=== PATIENT | male | born 1955 | race Caucasian/White ===

== ENCOUNTER → 2022-08-23 11:12 | Outpatient (BNVA) | payer MEDICARE, SELFPAY | PROVIDERS: PCP Internal Medicine; Referring Provider Internal Medicine; Visit Provider Internal Medicine Cardiovascular Disease | DX: I25.10 Atherosclerotic heart disease of native coronary artery without angina pectoris (principal) | CPT/HCPCS: 93005; 99212 ==

== ENCOUNTER 2025-02-25 10:23 | Day surgery (SDC) | payer MEDICARE, SELFPAY ==
--- OUTSIDE RECORDS SUMMARY | 2025-02-21 16:36 | XMS_ITS | Encounter Summary ---
Author Organization [facility] Address [address] [place] [address] Phone Care Team Providers Care P D Driver Name Role Phone Anil Fraser MD Primary Care Provider [phone] Anil Fraser MD Unavailable [phone] Encounter Details Date Type Department Care Team (Late st Contact Info) Description 01/07/2020 Ancillary Orders [facility] [address] [place] [address] Reinier Wood MD [address] [employer] [place] [address] [email or web address] Social History Tobacco Use Types Packs/Day Years Used Date Smoking Tobacco: Former Cigarettes 1 20 0 09/06/1984 - 09/06/2004 Smokeless Tobacco: Never Alcohol Use Standard Drinks/Week Comments Not Currently 0 (1 standard drink = 0.6 oz pur e alcohol) Sex and Gender Information Value Date Recorded Sex Assigned at Not on file Legal Sex Male 10:42 AM EDT Gender Identity Not on file Sexual Orientation Not on file documented as of this encounter Plan of Treatment Upcoming Encounters Date Type Department Care Team (Late st Contact Info) Description 04/13/2025 11:00 AM EST Office Visit [facility] Internal Medicine [address] [place] [address] Anil Fraser MD [address] [place], [place] [id number] 02/13/2026 1:30 PM EDT Office Visit [facility] [address] 1[address] [place] [address] Crystal Barth MD, PhD [address] [place] [address], [address] [place] [address] [email or web address] documented as of this encounter Visit Diagnoses Not on filedocumented in this encounter Care Teams P D Driver Relationship Specialty Start Date End Date Anil Fraser MD [address] [place] [address] PCP - General Internal Medicine 02/02/19 Anil Fraser MD [address] [place] [address] Insurance Assigned Provider 08/02/23 documented as of this encounter Additional Source Comments The information contained in this document represents components of the legal health record. It is not the complete legal health record.[facility]
--- OUTSIDE RECORDS SUMMARY | 2025-02-21 16:36 | XMS_ITS | Encounter Summary ---
Author Organization [facility] Address [address] [place] [address] Phone Care Team Providers Care Assistant Community Director Name Role Phone Anil Fraser MD Primary Care Provider [phone] Anil Fraser MD Unavailable [phone] Encounter Details Date Type Department Care Team (Latest Contact Info) Description 01/07/2020 Ancillary Orders [facility] Musculoskeletal at [address] [place] [address] Reinier Wood MD [address] [facility] A, [address] [place] [phone] [email or web address] Right knee pain, unspecified chronicity Social History Tobacco Use Types Packs/Day Years [...] Description 04/13/2025 11:00 AM EST Office Visit [facility] Internal Medicine [address] [place] [address] Anil Fraser MD [address] [place] [address] 02/13/2026 1:30 PM EDT Office Visit [facility] [address] 1[address] [place] [address] Crystal Barth MD, PhD [address] [place] [address], [address] [place] [address] [email or web address] documented as of this encounter Results * XR KNEE 4 OR MORE VIEWS (RIGHT) (01/10/2020 10:33 AM EDT) Anatomical Region Laterality Modality Knee Right Computed Radiogr aphy Narrative 01/10/2020 7:55 PM EDT Two views right knee demonstrate mild degenerative arthritis with minimal medial joint space narrowing. There is mild medial joint space narrowing on the left knee. us Reinier Wood MD IMG XR LOWER EXTREMITY Final Re sult documented in this encounter Visit Diagnoses Diagnosis Right knee pain, unspecified chronicity Right knee pain, unspecified chronicity documented in this encounter Care Teams Assistant Community Director Relationship Specialty Start Date End Date Anil Fraser MD [address] [place] [address] PCP - General Internal Medicine 02/02/19 Anil Fraser MD [address] [place] [address] Insurance Assigned Provider 08/02/23 documented as of this encounter Additional Source Comments The information contained in this document represents components of the legal health record. It is not the complete legal health record.[facility]
--- OUTSIDE RECORDS SUMMARY | 2025-02-21 16:36 | XMS_ITS | Patient Health Record ---
Author Organization [facility] Address [address] [place] [address] Care Team Providers Care Climate Change Analyst Name Role Phone Anil Fraser MD Primary Care Provider Frandy Waggoner [phone] Allergies No Known Allergies Reason For Referral No Information Medications Medication SIG (Take, Route, Frequency, Duration) Notes Start Date End Date Status Atorvastatin Calcium 40 MG 1 tablet Oral ly Once a day; Duration: 30 day(s) Active Aspir-81 Active Immunizations Vaccine Route Administration Date Status Comme nts Influenza Unknown 02/26/2018 Administered Influenza Unknown 02/17/2024 Administered Social History Alcohol Screen Question Answer Notes Did you have a drink containing alcohol in the p ast year? No Points 0 Interpretation Negative Section Notes: Nonsmoker x 8 yrs; few beers Q week Nonsmoker; no alcohol Nonsmoker; no alcohol Problems Problem Type SNOMED Code ICD Code Onset Dates Problem Status W/U Status Risk Notes Problem Screening for malignant neoplasm of colon (808420318) Encounter for screening for malignant neoplasm of colon (Z12.11) Active confirmed Problem History of adenomatous polyp of colon (015216314) History of adenomatous polyp of colon (Z86.010) Active confirmed Problem Preprocedural examination (783054510238578) Preprocedural examination (Z01.818) Active confirmed Problem Long-term current use of antiplatelet drug (770959851247898) Long-term use of aspirin therapy (Z79.82) Active confirmed Problem Ruptured abdominal aortic aneurysm (disorder) (56860510) Abdominal aortic aneurysm, ruptured, unspecified (I71.30) Active confirmed Vital Signs Temperature 96.9 degrees Fahrenheit 11/30/2024 Blood pressure diastolic 01 mm Hg 11/30/2024 Height 69 in 11/30/2024 Blood pressure systolic 001 mm Hg 11/30/2024 Weight 200.8 lbs 11/30/2024 BMI 29.65 kg/m2 11/30/2024 Encounters Encounter Location Date Provider Diagnosis [facility] [address] [place] [address] 11/30/2024 Frandy Carver History of adenomato us polyp of colon Z86.010 ; Long-term use of aspirin therapy Z79.82 ; Encounter for screening for malignant neoplasm of colon Z12.11 and Preprocedural examination Z01.818 Assessments Encounter Date Diagnosis (ICD Code) Assessment Notes Treatment Notes Treatment Clinical Notes Section Notes 11/30/2024 History of adenomatous polyp of colon (ICD-10 - Z86.010) Overall, Lizet appears quite well. Given his previous history of a tubular adenoma and his last colonoscopy being over 6 years ago, I did recommend a follow-up colonoscopy for further screening purposes. We did review the rationale for this in regard to colon cancer prevention. Full consent has been obtained for this, including risks of bleeding and perforation. The procedure will be done with monitored anesthesia care. He was advised to stop his aspirin for 1 week before the procedure. Of note, I did advise Lizet that if this upcoming colonoscopy is again negative for adenomas then I do not think he will need any further screening colonoscopies going forward. Since the previous 2 colonoscopies were negative for adenomas I would then plan to put him in a 10-year recall, rather than a 5-year recall if this upcoming colonoscopy is negative for adenomas. At that point Lizet would be just about 80 years old and we would most likely hold off on any further screening colonoscopies at that point. Lizet was comfortable with this plan. Thank you again for allowing me to participate in Lizet's care. I shall continue to keep you advised of his progress. 11/30/2024 Long-term use of aspirin therapy (ICD-10 - Z79.82) Overall, Lizet appears quite well. Given his previous history of a tubular adenoma and his last colonoscopy being over 6 years ago, I did recommend a follow-up colonoscopy for further screening purposes. We did review the rationale for this in regard to colon cancer prevention. Full consent has been obtained for this, including risks of bleeding and perforation. The procedure will be done with monitored anesthesia care. He was advised to stop his aspirin for 1 week before the procedure. Of note, I did advise Lizet that if this upcoming colonoscopy is again negative for adenomas then I do not think he will need any further screening colonoscopies going forward. Since the previous 2 colonoscopies were negative for adenomas I would then plan to put him in a 10-year recall, rather than a 5-year recall if this upcoming colonoscopy is negative for adenomas. At that point Lizet would be just about 80 years old and we would most likely hold off on any further screening colonoscopies at that point. Lizet was comfortable with this plan. Thank you again for allowing me to participate in Lizet's care. I shall continue to keep you advised of his progress. 11/30/2024 Encounter for screening for malignant neoplasm of colon (ICD-10 - Z12.11) Overall, Lizet appears quite well. Given his previous history of a tubular adenoma and his last colonoscopy being over 6 years ago, I did recommend a follow-up colonoscopy for further screening purposes. We did review the rationale for this in regard to colon cancer prevention. Full consent has been obtained for this, including risks of bleeding and perforation. The procedure will be done with monitored anesthesia care. He was advised to stop his aspirin for 1 week before the procedure. Of note, I did advise Lizet that if this upcoming colonoscopy is again negative for adenomas then I do not think he will need any further screening colonoscopies going forward. Since the previous 2 colonoscopies were negative for adenomas I would then plan to put him in a 10-year recall, rather than a 5-year recall if this upcoming colonoscopy is negative for adenomas. At that point Lizet would be just about 80 years old and we would most likely hold off on any further screening colonoscopies at that point. Lizet was comfortable with this plan. Thank you again for allowing me to participate in Lizet's care. I shall continue to keep you advised of his progress. 11/30/2024 Preprocedural examination (ICD-10 - Z01.818) Overall, Lizet appears quite well. Given his previous history of a tubular adenoma and his last colonoscopy being over 6 years ago, I did recommend a follow-up colonoscopy for further screening purposes. We did review the rationale for this in regard to colon cancer prevention. Full consent has been obtained for this, including risks of bleeding and perforation. The procedure will be done with monitored anesthesia care. He was advised to stop his aspirin for 1 week before the procedure. Of note, I did advise Lizet that if this upcoming colonoscopy is again negative for adenomas then I do not think he will need any further screening colonoscopies going forward. Since the previous 2 colonoscopies were negative for adenomas I would then plan to put him in a 10-year recall, rather than a 5-year recall if this upcoming colonoscopy is negative for adenomas. At that point Lizet would be just about 80 years old and we would most likely hold off on any further screening colonoscopies at that point. Lizet was comfortable with this plan. Thank you again for allowing me to participate in Lizet's care. I shall continue to keep you advised of his progress. Plan Of Treatment Pending Test Test Name Order Date Colonoscopy 11/30/2024 Future Test Test Name Order Date COLONOSCOPY 09/18/2012 COLONOSCOPY 09/15/2018 Next Appt Details Provider Name:Frandy Mcarthur Carver , 02/25/2025 11:20:00 AM, [address] [place] [address] , [place], [place], [id number], Insurance Providers Payer Name Payer Address Payer Phone Subscriber Number Group Number Insured Name Patient Relationship to Insured Coverage Start Date Coverage End Date MEDICARE OF [place] [address] [place] [address] [id number] CHANTEL LIZET Self - patient is the insured [employer] CLAIMS [address] [place] [address] [phone] [id number] [id number] Self - patient is the insured Medical (General) History Medical History History ICD Code Hx. tubular adenoma and hype rplastic polyp removed by colonoscopy in 08/2006; negative colonoscopy in 11/2012 Small internal hemorrhoids Diverticulosis Denies PR,DM,CVA,Lung disease,renal dise ase Hyperlipidemia Colonoscopy 10/2018 neg. except for a hyp erplastic polyp Surgical History Surgery Date(Month/Year) Perianal abscess-Dr. Li Left knee arthroscopy Rotator cuff surgery Hernia surgeries-Bilateral inguinal and umbilical
--- OUTSIDE RECORDS SUMMARY | 2025-02-21 16:37 | XMS_ITS | Clinical Summary ---
Author Organization [facility] Address [address] [place] [phone] Phone Care Team Providers Care Acoustical Installer Name Role Phone Nia Fraser MD Primary Care Provider [phone] Nia Fraser MD Unavailable [phone] Allergies Active Allergy Reactions Criticality Noted Date Comments Bee Pollen Anaphylaxis High 12/11/2023 White faced hornet Medications EPINEPHrine 0.3 mg/0.3 mL auto-injector Inject 0.3 mL (0.3 mg total) into the muscle as needed for anaphylaxis. 1 each 3 0 Active aspirin 81 mg chewable tablet 1 tablet Orally Once a day Active fluoride, sodium, (PREVIDENT 5000 BOOSTER) 1.1 % Pste 1 application nightly at bedtime. 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, bilateral 01/31/2025 Dry eye syndrome of both eyes 01/31/2025 Age-related nuclear cataract of both eyes 2024 Meibomian gland dysfunction (MGD) of both eyes 1 Refractive error 01/31/2025 Osteoarthritis of right knee 02/11/2020 Acute medial meniscus tear of right knee 020 Hyperlipidemia Encounters Date Type Department Care Team Description 01/31/2025 1:45 PM EDT Office Visit [address] [address] Crystal Barth MD, PhD 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, bilateral (Primary Dx); Age-related nuclear cataract of both eyes; Dry eye syndrome of both eyes; Meibomian gland dysfunction (MGD) of both eyes, unspecified eyelid; Refractive error from Last 3 Months Immunizations Immunization Administration Dates Next Due COVID-19 (Pre-02/17) Moderna Vaccine, mRNA, PF 08/01/2021,02/24/2021,07/16/2020,06/18 COVID-19 Novavax Vaccine + 02/22/2023 COVID-19 Pfizer Comirnaty Vaccine 01/17/2024 INFLUENZA, SPLIT VIRUS, TRIVALENT PF 01/02/2015 INFLUENZA, SPLIT VIRUS, TRIV ALENT W/ PRESERVATIVE IM 05/05/2012 Influenza Quadrivalent Prese rvative Free IM 12/12/2022,12/09/2021,12/15/2019,01/27,12/20/2015,05/12/2015 Pneumococcal conjugate PCV13 12/08/2020 Pneumococcal conjugate PCV20 12/09/2022 Pneumococcal polysaccharide PPSV23 07/01/2016 RSV Vaccine (monovalent, adjuvanted) 02/22/2023 Tdap 06/06/2023,06/01/2013 Zoster live 07/02/2016,04/06/2016 Zoster recombinant 12/09/2021,09/28/2021 Family History Medical History Relation Comments Heart disease Brother 1 Coronary artery disease Mother Heart disease Mother Bleeding in the brain Sister 1 Other Sister 1 Alveolar Bas[place] t Membrane Antibody Stroke Sister 1 2 minor stroke f rom abm Relation Status Comments Brother 1 Alive Brother 2 Alive Heart valve repl acement Mother Sister 1 Alive Sister 2 Alive Social History Tobacco Use Types Packs/Day Years Used Date Smoking Tobacco: Former Cigarettes 1 20 0 09/06/1984 - 09/06/2004 Smokeless Tobacco: Never Tobacco Cessation:Counseling Given: Not Answered Alcohol Use Standard Drinks/Week Comments Not Currently 0 (1 standard drink = 0.6 oz pur e alcohol) Education Answer Date Recorded Are you interested in more education? Not on aakash e 08/23/2022 Are you concerned about learning? Not on file 08/23/2022 No 08/23/2022 No 08/23/2022 Digital Access Answer Date Recorded No 09/21/2022 No 09/21/2022 Reliable internet access at home? Not on file 09/21/2022 Device with a working camera? Not on file Intimate Partner Violence Answer Date R ecorded Denied Basic Needs Not on file 12/10/2023 In the past 12 months have y ou been in a relationship with a person who hurts, threatens, or tries to control you? No 12/10/2023 Worried food would run out Not on file 12/09 In the past 12 months have y ou been in a relationship with a person who hurts, threatens, or tries to control you? No 12/10/2023 Sex and Gender Information Value Date Recorded Sex Assigned at Not on file Legal Sex Male 10:42 AM EDT Gender Identity Not on file Sexual Orientation Not on file Occupation Industry Job Start Date Job End Date retired Not on file Not on file Not on file Last Filed Vital Signs Vital Sign Reading Time Taken Comments Blood Pressure 115/72 07/27/2024 11:28 AM EDT Pulse 56 07/27/2024 11:28 AM EDT Temperature 36.6 C (97.9 F) 07/27/2024 11:28 AM EDT Respiratory Rate 20 07/27/2024 11:2 8 AM EDT Oxygen Saturation 96% 07/27/2024 11: 28 AM EDT Inhaled Oxygen Concentration - - Weight 91.1 kg (200 lb 12.8 oz) 025 11:28 AM EDT Height 177.8 cm (5' 10 ) 07/27/2024 11: 28 AM EDT Body Mass Index 28.81 07/27/2024 11:28 AM EDT Plan of Treatment Upcoming Encounters Date Type Department Care Team (Late st Contact Info) Description 04/13/2025 11:00 AM EST Office Visit [facility] Internal Medicine [address] [place] [address] Nia Fraser MD [address] [place] [address] 02/13/2026 1:30 PM EDT Office Visit [facility] [address] 1st [place] [address] Crystal Barth MD, PhD [address] [place] [address], [address] [place] [id number] [email or web address] Health Maintenance Due Date Last Done Comments COLOGUARD 08/26/2000 FIT TEST 08/26/2000 FOBT 08/26/2000 SIGMOIDOSCOPY 08/26/2000 VIRTUAL COLONOSCOPY 08/26/2000 COLONOSCOPY 11/12/2023 11/11/2018, 11/11/2018 COLORECTAL CANCER SCREENING 11/12/2023 INFLUENZA VACCINE (#1) 2024 3, 12/12/2022, 12/12/2022, Additional history exists DEPRESSION SCREENING 12/09/2024 12/10/2023 COVID-19 VACCINE ( season) 2024 01/17/2024, 02/22/2023, 08/01/2021, Additional history exists SCREENING FOR DIABETES 12/10/2026 , 12/11/2023, 05/22/2018 LIPID PANEL 12/10/2028 12/11/2023, 11/26, 12/09/2022, Additional history exists Adult Td,Tdap Booster 06/06/2033 06/06/2023, 014 HEPATITIS C SCREENING Completed 06/24/2019 ZOSTER VACCINES Completed 12/09/2021, 06/0 06/2021, 07/02/2016, Additional history exists ABDOMINAL AORTIC ANEURYSM (AAA) SCREENING Completed 12/26/2021 PNEUMOCOCCAL VACCINES (50+ years) Completed 12/09/2022, 12/08/2020, 07/01/2016 RSV VACCINE Completed 02/22/2023 SMOKING STATUS SCREENING (Once After 26 Yrs) Completed 07/27/2024 HEPATITIS A VACCINES Aged Out No long er eligible based on patient's age to complete this topic HIB VACCINES Aged Out No longer eligi ble based on patient's age to complete this topic MENINGOCOCCAL VACCINES (ACWY) Aged Out No longer eligible based on patient's age to complete this topic MENINGOCOCCAL VACCINES (B) Aged Out N o longer eligible based on patient's age to complete this topic Medical Devices Not on file Procedures Procedure Name Priority Date/Time Associated Diagnosis Comments OCT, OPTIC NERVE - OU - BOTH EYES Routine 01/31/2025 2:48 PM EDT 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, bilateral PRICE VISUAL FIELD - OU - BOTH EYES Routine 01/31/2025 2:47 PM EDT 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 Borderline sup thin OU Crystal Barth MD, PhD OPHTHALMOLOGY IMAGING Final Result Performing Organization Address [facility] [address]/[facility] Co de Phone Number HARMONY * Price Visual Field - OU - Both Eyes (01/31/2025 2:47 PM EDT) Narrative Listen Edition - 01/31/2025 2:47 PM EDT OD: full OS: ?early inf nasal step Crystal Barth MD, PhD OPHTHALMOLOGY IMAGING Final Result Performing Organization Address [facility] [address]/ZIP Co de Phone Number HARMONY * (ABNORMAL) Lipid panel (12/11/2023 10:41 AM EDT) HDL 58 mg/dL [facility] Comment: Interpretation <40 mg/dL: Low HDL cholesterol (major risk factor for CHD) Greater than or equal to 60 mg/dL: High HDL cholesterol ( negative risk factor for CHD) HDL - cholesterol is affected by a number of factors, e.g. smoking, excerise, hormones, sex and age. CHOLESTEROL 129 0 - 240 mg/dL [facility] TRIGLYCERIDES 54 30 - 160 mg/dL [facility] LDL 60 50 - 129 mg/dL [facility] Comment: LDL levels in terms of risk for coronary heart disease: <100 mg/dL: Optimal 100-129 mg/dL: Near or above optimal 130-159 mg/dL: Borderline high 160-189 mg/dL: High >190 mg/dL: Very High CARDIAC RISK RATIO 2.2(L) 3.4 - 5.0 C [facility] Blood 12/11/2023 10:4 1 AM EDT 12/11/2023 10:45 AM EDT us Nia Fraser MD LAB BLOOD ORDERABLES Final Re sult Performing Organization Address City/State/[facility] Co de Phone Number [address] [address] * US Abdominal Aortic Screening (12/26/2021 9:22 AM EDT) Anatomical Region Laterality Modality Abdomen Ultrasound Narrative 12/26/2021 11:33 AM EDT LIZET GOLDEN Aortic Ultrasound Exam, 12/26/2021 EXAM INFORMATION Patient Name: LIZET GOLDEN : 1955 Age: 66 yrs Sex: Male Ref Phys: NIA FRASER Exam Date: 12/26/2021 Procedure: US ABDOMINAL AORTIC SCREENING Exam [facility]: [facility] History: The patient's brother diagnosed with aneurysm. Exam Quality: Suboptimal. Exam compared to prior exam: None. Indications: Abdominal aortic aneurysm screening, Family history of abdominal aortic aneurysm. FINDINGS: Aorta ----- The proximal aorta measures 2.6 cm in diameter. The mid aorta measures 1.9 cm in diameter. The distal aorta measures 1.7 cm in diameter. The right common iliac artery measures 6.1 mm in diameter. The left common iliac artery measures 6.2 mm in diameter. No evidence of abdominal aortic aneurysm. The aorta appears atherosclerotic. Doppler ------- Color Doppler was performed of the aorta to evaluate the lumen. The aorta appears patent. IMPRESSION: * No sonographic evidence of AAA. Worksheet finished by laurel Adamesographer on 12/26/2021 9:22:21 AM. Diamond Expert: laurel Adamesographer Procedure Note Mike Recinos MD - 12/26/2021 LIZET GOLDEN Aortic Ultrasound Exam, 12/26/2021 EXAM INFORMATION Patient Name: LIZET GOLDEN : 1955 Age: 66 yrs Sex: Male Ref Phys: NIA FRASER Exam Date: 12/26/2021 Procedure: US ABDOMINAL AORTIC SCREENING Exam Site: [facility] History: The patient's brother diagnosed with aneurysm. Exam Quality: Suboptimal. Exam compared to prior exam: None. Indications: Abdominal aortic aneurysm screening, Family history ofabdominal aortic aneurysm. FINDINGS: Aorta ----- The proximal aorta measures 2.6 cm in diameter. The mid aorta measures1.9 cm in diameter. The distal aorta measures 1.7 cm in diameter. The right common iliac artery measures 6.1 mm in diameter. The left commoniliac artery measures 6.2 mm in diameter. No evidence of abdominal aortic aneurysm. The aorta appears atherosclerotic. Doppler ------- Color Doppler was performed of the aorta to evaluate the lumen. The aortaappears patent. IMPRESSION: * No sonographic evidence of AAA. Worksheet finished by Charlee Angela knifer up on 12/26/2021 9:22:21AM. Diamond Expert: Charlee Angela knifer up us Nia Fraser MD G US ABDOMEN Final Result * Hepatitis C antibody, qualitative (06/24/2019 10:08 AM EST) HCV NON-REACTIV E NON-REACTI VE [facility] Blood 06/24/2019 10:0 8 AM EST 06/24/2019 10:15 AM EST Nia Fraser MD LAB BLOOD ORDERABLES Final Re sult [facility] [address] [place] [address] * COLONOSCOPY FOR RESULT ENTRY ONLY (11/11/2018) HM Colonoscopy 5 year repeat Historical Provider HEALTH MAINTENANCE Final Result * Outside Glucose,Fasting (05/22/2018) Glucose, fasting - External 77 65 - 99 mg/dL Historical Provider LAB BLOOD ORDERABLES Elly l Result from Last 3 Months or Most Recently Relevant to Health Maintenance Insurance MEDICARE PART A & B [employer] MEDEX SUPPLEMENT MEDICARE PART A & B [employer] SU[employer]LEMENT MEDICARE PART A & B [employer] SU[employer]LEMENT MEDICARE PART A & B [employer] SUPPLEMENT UN[address] [place] [address] MEDICARE PART A & B [employer] SU[employer]LEMENT MEDICARE PART A & B [employer] MEDICARE PART A & B [employer] SUPPLEMENT UN[address] [place] [address] MEDICARE PART A & B [employer] SU[employer]LEMENT MEDICARE PART A & B [employer] SUPPLEMENT VD [address] [place] [id number] MEDICARE PART A & B [employer] SUPPLEMENT Care Teams Acoustical Installer Relationship Specialty Start Date End Date Nia Fraser MD [address] [place] [address] [email or web address] PCP - General Internal Medicine 02/02/19 Nia Fraser MD [address] [place] [address] [email or web address] Insurance Assigned Provider 08/02/23 Additional Source Comments The information contained in this document represents components of the legal health record. It is not the complete legal health record.[facility]
[2025-02-23 14:34] VITALS: BMI 29.6
--- NOTE | 2025-02-24 08:30 | HO.ANESPROP2 ---
Documented by User: Shana Gee NP 02/24/25 08:31 HPI - Anesthesia Eval Consult details Narrative: 69yo M for Colonoscopy [facility] Active Problems Active Problems: All Active Problems CAD (coronary artery disease) (Acute) Past Medical History Medical History Hyperlipidemia Diverticulosis Family History Family History Father No problems noted. Mother No problems noted. Brother Heart valve replaced Surgical History Surgical History Hx of excision of mass Hx of repair of rotator cuff Hx of hernia repair H/O colonoscopy Hx of knee surgery Social History Social History Patient Tobacco Use Status: Former Tobacco user Tobacco use type: Cigarette Have you been hit, kicked, punched, or otherwise hurt by someone within the past year? If so, by whom?: No Advance Directives: No Advance Directives Information Provided: Yes Meds Allergies Allergy/AdvReac Type Severity Reaction Status Date / Time No Known Allergies Allergy Verified 08/23/22 11:26 Home Medications ?Medication ?Instructions ?Recorded ?Confirmed ?Last Taken ?Type aspirin 81 mg tablet,delayed 81 mg PO DAILY 08/23/22 02/25/25 02/09/25 History release (Adult Aspirin Regimen) atorvastatin 40 mg tablet 40 mg PO DAILY 08/23/22 02/23/25 Unknown History ibuprofen 800 mg tablet 800 mg PO TID 08/23/22 02/25/25 02/09/25 History Exam Height,Weight and Vital Signs: Height 5 ft 9 in Weight 91.081 kg Assessment and Plan Assessment Anesthesia Assessment: Chart Reviewed Documented by User: Shania Reynolds MD 02/25/25 11:04 [facility] Past Medical History Medical History Hyperlipidemia Diverticulosis Family History Family History Father No problems noted. Mother No problems noted. Brother Heart valve replaced Surgical History Surgical History Hx of excision of mass Hx of repair of rotator cuff Hx of hernia repair H/O colonoscopy Hx of knee surgery History of Problems with Anesthesia: No Social History Social History Patient Tobacco Use Status: Former Tobacco user Tobacco use type: Cigarette Have you been hit, kicked, punched, or otherwise hurt by someone within the past year? If so, by whom?: No Advance Directives: No Advance Directives Information Provided: Yes Meds Allergies Allergy/AdvReac Type Severity Reaction Status Date / Time No Known Allergies Allergy Verified 08/23/22 11:26 Home Medications ?Medication ?Instructions ?Recorded ?Confirmed ?Last Taken ?Type aspirin 81 mg tablet,delayed 81 mg PO DAILY 08/23/22 02/25/25 02/09/25 History release (Adult Aspirin Regimen) atorvastatin 40 mg tablet 40 mg PO DAILY 08/23/22 02/23/25 Unknown History ibuprofen 800 mg tablet 800 mg PO TID 08/23/22 02/25/25 02/09/25 History Exam Airway Mallampati Class: III TM Dist: >3cm Neck ROM: Full Loose/Missing/Broken Teeth: No Heart: RRR Lungs: CTA Assessment and Plan Assessment Anesthesia Assessment: Anesthesia Plan Discussed Final Anesthetic Review History of Problems with Anesthesia: No NPO: Yes ASA Class: II Final Preanesthetic Review: Meds/Allgs Chart Reviewed, Consent Obtained/Reviewed and Anes Risks/Benef Reviewed Patient Risk: Low Procedure Risk: Low Anesthetic Plan Anesthetic Plan: MAC: Disposition: Standard PACU
[2025-02-25 10:46] VITALS: BP 116/60; PULSE 67; RESP 18; TEMP 36.9; O2SAT 97; BMI 28.8
[2025-02-25] MEDS: Lactated Ringers 1,000 ML 100 ML IVCONT (10:56)
[2025-02-25 12:47] VITALS: BP 106/52; PULSE 53; RESP 15; TEMP 36.1; O2SAT 98
--- NOTE | 2025-02-25 12:53 | PM.OP ---
Brief Operative Note Date of Service: 02/25/25 Pre-op diagnosis: Screening Post-op diagnosis: other (Polyps) Procedure: Colonoscopy to the cecum with bx/removal of polyps Surgeon: Frandy Carver MD Anesthesia: MAC Was an Chief Technician used for this Procedure?: No Estimated blood loss (mL): 2.0 Pathology: other (A. Rectal polyps) Condition: stable Disposition: PACU
[2025-02-25 13:02] VITALS: BP 119/59; PULSE 52; RESP 20; TEMP 36.4; O2SAT 98
--- NOTE | 2025-02-25 13:22 | OP_ITS ---
DATE OF SERVICE: 02/25/2025 SURGEON: Frandy Carver MD INDICATIONS: History of colorectal cancer screening and personal history of colon polyp. Full consent has been obtained from him for this, including risks of bleeding and perforation. PREOPERATIVE DIAGNOSIS: POSTOPERATIVE DIAGNOSIS: PROCEDURE PERFORMED: Colonoscopy to cecum with biopsy and removal of polyp. ESTIMATED BLOOD LOSS: COMPLICATIONS: ANESTHESIA: Medication used, monitored anesthesia care. ASSISTANTS: SPECIMENS: PREOPERATIVE DIAGNOSES: Colorectal cancer screening and personal history of tubular adenoma of the colon. POSTOPERATIVE DIAGNOSES: Colorectal cancer screening, personal history of tubular adenoma of the colon, rectal polyps, diverticulosis, and internal hemorrhoids. DESCRIPTION OF PROCEDURE: The patient was placed in the left lateral decubitus position. The digital rectal exam revealed no abnormalities. The Olympus video pediatric colonoscope was entered into the rectum and advanced to the cecum. Advancing to the cecum was difficult due to significant sigmoid diverticulosis and a lot of liquid stool. However, once in the cecum, I did identify normal cecal pouch with appendiceal orifice and a normal-appearing ileocecal valve. The entire cecum was well visualized and appeared normal. The scope was then slowly withdrawn assessing all mucosal surfaces carefully. Preparation in various parts of the colon, particularly in the sigmoid colon, was somewhat limited due to a lot of liquid stool which had to be irrigated and suctioned away as best as possible. The only polyps I visualized were 2 flat, approximately 4 mm polyps in the rectum, which were both biopsied and completely removed with cold biopsy forceps. There was a moderate amount of sigmoid diverticulosis. I did not visualize any sign of colitis nor angiodysplasia. In the rectum, the scope was retroflexed visualizing internal hemorrhoids. The rectal mucosa appeared normal. The scope was straightened and withdrawn from the patient. He tolerated the procedure well and was returned to the recovery area in stable condition. IMPRESSION: 1. Rectal polyps. 2. Diverticulosis. 3. Internal hemorrhoids. PLAN: The results of the biopsies will be checked. I would recommend a repeat colonoscopy in 5 years for further screening and surveillance. I would recommend a 2-day prep at that time. He will otherwise see me as needed. He was advised not to use any aspirin or NSAIDs for 1 more week. MD BO Anne/CHRISTINAL / [phone] [facility]
== END 2025-02-25 13:23 | disposition home or self-care (01) ==
PROVIDERS: PCP Internal Medicine; Visit Provider Internal Medicine
PROC: 0DJD8ZZ Inspection of Lower Intestinal Tract, Via Natural or Artificial Opening Endoscopic (ICD-10-PCS; CPT 45378; principal; 2025-02-25 11:20)
DX: Z12.11 Encounter for screening for malignant neoplasm of colon (principal); Z86.0101 Personal history of adenomatous and serrated colon polyps; D12.8 Benign neoplasm of rectum; K57.30 Diverticulosis of large intestine without perforation or abscess without bleeding; K64.8 Other hemorrhoids; E78.5 Hyperlipidemia, unspecified; Z79.82 Long term (current) use of aspirin; Z79.899 Other long term (current) drug therapy; Z87.891 Personal history of nicotine dependence; Z98.890 Other specified postprocedural states
CPT/HCPCS: 45380; 88305; J2704